=== PATIENT | female | born 1955 | race Caucasian/White ===

== ENCOUNTER → 2017-05-08 | Outpatient (CLI) | payer OTHER ==
[~2017-05-08] MED LIST: ACE3 FT; ALEN35TA30 PO; AMOX-559 PO; ARIP5TAB28 PO; ASPI-292 PO; BAC10 PO; BACLOFEN; CALC-649 PO; CELEXA; CETI-434 PO; CITALOPRAM HBR PO; CYCL10TA29 PO; GUALA600 PO; IBUP600T22 PO; LEV112 PO; LEV500 PO; LOR5/325 PO; MULTI VITAMIN; OMEGA 3; OXY5 PO; PILO5TAB12 PO; PROP10TA58 PO; TRAZ-133 PO; VALP250C32 PO; ZOL5 PO
--- NOTE | 2017-05-30 09:30 | RADIOLOGY IMAGING REPORT ---
[place] [facility] [place] NAME: QUINN PHILIP : [id number] MR: [id number] V: [id number] EXAM DATE: ORDERING PHYSICIAN: ROLANDO PHILLIPS TECHNOLOGIST: Blanche Marley PROCEDURE:BILATERAL DIGITAL SCREENING MAMMOGRAM WITH CAD AND 3D BREAST TOMOSYNTHESIS. COMPARISON:03/02/16 and priors back to 07/28/10. INDICATIONS:ROUTINE SCREENING FINDINGS: The breasts have scattered fibroglandular parenchymal densities. There are no mammographic findings concerning for malignancy. No significant interval change. DIAGNOSTIC CATEGORY 1--NEGATIVE. RECOMMENDATIONS: ROUTINE MAMMOGRAM AND CLINICAL EVALUATION. IMPRESSION: Bi-RADS 1: Negative. RECOMMENDATION: Followup screening mammogram in one year. Dictated by: Chico Huston on 05/28/2017 at 13:13 Transcribed by: GINI on 05/28/2017 at 21:57 Approved by: Stephanie Felix M.D. on 05/30/2017 at 8:49 [facility]
== END ==
LOC: MAMO 01:30
DX: Z12.31 Encounter for screening mammogram for malignant neoplasm of breast (principal)
CPT/HCPCS: 77063; 77067

== ENCOUNTER 2018-08-26 11:05 | Emergency (ER) | payer OTHER ==
--- NOTE | 2018-08-26 11:15 | ER Report ---
History and Physical Time Seen By MD: 11:15 HPI/ROS CHIEF COMPLAINT: Short of breath, congestion, nausea, vomiting and diarrhea HISTORY OF PRESENT ILLNESS: 63-year-old female patient presents to emergency room with complaint shortness of breath, congestion, nausea vomiting and diarrhea. Patient states this been going on for the past 2 weeks. She states that 2 weeks ago started having nausea, vomiting and diarrhea. States that persisted for a week. She states approximately one week ago she started having sinus congestion and shortness of breath. She states that has persisted since then. Patient states that she is having a productive cough. She states that she does not have much of an appetite. She states she has had a significant heada navdi. States that this is in the frontal as well as the back. She states that she's not had any visual changes. She denies any loss of consciousness or or injury to the head. Patient states she contacted somebody who recommended that she be evaluated immediately. REVIEW OF SYSTEMS: Respiratory: As noted above Cardiovascular: No chest pain, no palpitations. Gastrointestinal: As noted above Musculoskeletal: No back pain. Allergies: Coded Allergies: Cephalosporins (Unverified Allergy, Mild, 09/30/10) Sulfa (Sulfonamide Antibiotics) (Unverified Allergy, Mild, HIVES, SHORTNESS OF BREATH, 09/30/10) albuterol (Verified Allergy, Unknown, 08/26/18) wheezing Home Meds Active Scripts Amoxicillin/Pot Clav 875-125 Mg Tab (AUGMENTIN 875-125 TABLET) 1 Each Tablet, 1 TAB PO Q12H, #20 TAB Prov:CHAMP HARLEY SLIDE MACHINE TENDER 08/26/18 Reported Medications Multivitamin With Minerals (MULTIPLE VITAMIN) 1 Each Tablet, 1 EACH PO, TAB 08/26/18 Levothyroxine Sodium (LEVOTHYROXINE SODIUM) 0.112 Mg Tab, 0.112 MG PO QDAY, TAB 05/30/15 Propranolol Hcl (Inderal) 10 Mg Tablet, 10 MG PO QDAY, 0 Refills 09/30/10 Trazodone Hcl (Trazodone Hcl) 100 Mg Tablet, 100 MG PO QHS, 0 Refills 09/30/10 Cetirizine Hcl (Cetirizine Hcl) 10 Mg Tab.chew, 10 MG PO QDAY, 0 Refills 09/30/10 Oxybutynin Chloride (Ditropan) 5 Mg Tab, 5 MG PO 2 TABLETS TWO/DAY 09/30/10 Zolpidem Tartrate (Ambien) 5 Mg Tab, 10 MG PO QHS TAKES 10 MG AT HS 09/30/10 Discontinued Reported Medications Cyclobenzaprine Hcl (CYCLOBENZAPRINE HCL) 10 Mg Tablet, 10 MG PO TID, #9 TAB 05/30/15 Ibuprofen (IBUPROFEN) 600 Mg Tablet, 1 TAB PO Q6H 05/30/15 Acetaminophen/Codeine (TYLENOL #3 (OR EQUIV)) 1 Ea Tab, 1 EA FT PRN, TAB 05/30/15 Aspirin (Analgesic) 325 Mg Tablet, 325 MG PO WENT OFF OF THURS PREOP 09/30/10 Discontinued Scripts Hydrocodone Bit/Acetaminophen (HYDROCODON-ACETAMINOPHEN 5-325) 1 Each Tablet, 1 EACH PO Q4-6H, #14 TAB Prov:BOBBY ALMENDAREZ CHIEF TECHNICIAN X RAY 05/30/15 Amoxicillin/Pot Clav 875-125 Mg Tab (AUGMENTIN 875-125 TABLET) 1 Each Tablet, 1 TAB PO Q12H, #20 TAB Prov:BOBBY ALMENDAREZ CHIEF TECHNICIAN X RAY 05/30/15 Past Medical/Surgical History Patient has a past medical history of migraines, asthma, pneumonia, cholecystitis, osteopenia, arthritis, hypothyroidism, bipola, depression, PTSD. Patient has a surgical history of cholecystectomy, left knee surgery, tonsillectomy, sinus surgery, ganglion cyst removed. Reviewed Nurses Notes: Yes Hx Smoking: No Smoking Status: Never Smoker Exposure to Second Hand Smoke?: No Hx Substance Use Disorder: No Hx Alcohol Use: No Constitutional Vital Sign - Last 24 Hours 08/26/18 08/26/18 08/26/18 08/26/18 11:11 11:16 11:17 11:20 Temp 98.2 Pulse 79 72 Resp 20 38 B/P (MAP) 111/68 ???/??? (4265) 111/ (82) Pulse Ox 95 94 O2 Delivery Room Air 08/26/18 08/26/18 08/26/18 08/26/18 11:30 11:30 11:35 11:35 Pulse 62 65 64 Resp 14 14 19 Pulse Ox 94 98 O2 Delivery Room Air 08/26/18 08/26/18 08/26/18 08/26/18 11:50 12:05 12:18 12:20 Pulse 61 ??? 58 Resp 14 B/P (MAP) ???/??? (1665) Pulse Ox 98 08/26/18 08/26/18 08/26/18 08/26/18 12:30 12:35 12:50 12:54 Pulse 58 61 Resp 21 15 B/P (MAP) ???/??? (1665) 104/76 (85) Pulse Ox 98 99 08/26/18 08/26/18 08/26/18 08/26/18 13:00 13:05 13:20 13:30 Pulse 60 68 Resp 10 28 B/P (MAP) 98/72 (81) 94/67 (76) Pulse Ox 93 91 08/26/18 13:35 Pulse 53 Resp 30 Pulse Ox 93 Physical Exam General Appearance: The patient is alert, has no immediate need for airway protection and no current signs of toxicity. Respiratory: Chest is non tender, lungs are coarse with expiratory wheezes to auscultation. Cardiac: regular rate and rhythm Gastrointestinal: Abdomen is soft and non tender, no masses, bowel sounds normal. Musculoskeletal: Neck: Neck is supple and non tender. Extremities have full range of motion and are non tender. Skin: No rashes or lesions. DIFFERENTIAL DIAGNOSIS: After history and physical exam differential diagnosis was considered for sinusitis, gastroenteritis, viral syndrome, infectious diarr hea. Medical Decision Making Data Points Result Diagram: 08/26/18 1153 08/26/18 1153 Laboratory Hematology Test 08/26/18 11:53 08/26/18 13:17 Red Blood Count 4.84 M/uL (4.17-5.56) Mean Corpuscular Volume 89.9 fL (80.0-96.0) Mean Corpuscular Hemoglobin 30.5 pg (26.0-33.0) Mean Corpuscular Hemoglobin Concent 33.9 g/dL (32.0-36.0) Red Cell Distribution Width 13.1 % (11.5-14.5) Mean Platelet Volume 7.6 fL (7.2-11.1) Neutrophils (%) (Auto) 58.1 % (39.4-72.5) Lymphocytes (%) (Auto) 31.9 % (17.6-49.6) Monocytes (%) (Auto) 6.6 % (4.1-12.4) Eosinophils (%) (Auto) 2.7 % (0.4-6.7) Basophils (%) (Auto) 0.7 % (0.3-1.4) Nucleated RBC Relative Count (auto) 0.0 /100WBC Neutrophils # (Auto) 2.8 K/uL (2.0-7.4) Lymphocytes # (Auto) 1.5 K/uL (1.3-3.6) Monocytes # (Auto) 0.3 K/uL (0.3-1.0) Eosinophils # (Auto) 0.1 K/uL (0.0-0.5) Basophils # (Auto) 0.0 K/uL (0.0-0.1) Nucleated RBC Absolute Count (auto) 0.00 K/uL Sodium Level 140 mmol/L (137-145) Potassium Level 3.7 mmol/L (3.5-5.0) Chloride Level 107 mmol/L (98-107) Carbon Dioxide Level 26 mmol/L (22-31) Blood Urea Nitrogen 15 mg/dl (7-18) Creatinine 0.90 mg/dl (0.52-1.04) Glomerular Filtration Rate Calc > 60.0 Random Glucose 113 mg/dl (75-110) Calcium Level 8.3 mg/dl (8.4-10.2) Total Bilirubin 0.2 mg/dl (0.2-1.3) Aspartate Amino Transf (AST/SGOT) 27 U/L (0-35) Alanine Aminotransferase (ALT/SGPT) 31 U/L (0-56) Alkaline Phosphatase 86 U/L (0-126) Total Protein 6.7 g/dl (6.3-8.2) Albumin 3.9 g/dl (3.5-5.0) Amylase Level 53 U/L (0-110) Lipase 85 U/L (23-300) Helicobacter pylori IgG Antibody Negative (NEGATIVE) Urine Color Yellow Urine Clarity Slightly-cloudy Urine pH 5.0 pH (4.8-9.5) Urine Specific [place] 1.027 Urine Protein Negative mg/dL (NEGATIVE) Urine Glucose (UA) Negative mg/dL (NEGATIVE) Urine Ketones Negative mg/dL (NEGATIVE) Urine Blood Negative (NEGATIVE) Urine Nitrite Negative (NEGATIVE) Urine Bilirubin Small (NEGATIVE) Urine Urobilinogen Negative mg/dL (0.2-1.9) Urine Leukocyte Esterase Negative (NEGATIVE) Urine RBC None /HPF (0-2/HPF) Urine WBC 2 /HPF (0-5/HPF) Urine Squamous Epithelial Cells Many /LPF (</=FEW) Urine Transitional Epithelial Cells Few /LPF (NONE-FEW) Urine Calcium Oxalate Crystals Few /HPF (NONE) Urine Bacteria Negative /HPF (NONE-FEW) Urine Mucus Few /HPF (NONE-FEW) Chemistry Test 08/26/18 11:53 08/26/18 13:17 White Blood Count 4.8 k/uL (4.5-11.0) Red Blood Count 4.84 M/uL (4.17-5.56) Hemoglobin 14.7 g/dL (12.0-16.0) Hematocrit 43.5 % (34.0-47.0) Mean Corpuscular Volume 89.9 fL (80.0-96.0) Mean Corpuscular Hemoglobin 30.5 pg (26.0-33.0) Mean Corpuscular Hemoglobin Concent 33.9 g/dL (32.0-36.0) Red Cell Distribution Width 13.1 % (11.5-14.5) Platelet Count 235 K/uL (150-450) Mean Platelet Volume 7.6 fL (7.2-11.1) Neutrophils (%) (Auto) 58.1 % (39.4-72.5) Lymphocytes (%) (Auto) 31.9 % (17.6-49.6) Monocytes (%) (Auto) 6.6 % (4.1-12.4) Eosinophils (%) (Auto) 2.7 % (0.4-6.7) Basophils (%) (Auto) 0.7 % (0.3-1.4) Nucleated RBC Relative Count (auto) 0.0 /100WBC Neutrophils # (Auto) 2.8 K/uL (2.0-7.4) Lymphocytes # (Auto) 1.5 K/uL (1.3-3.6) Monocytes # (Auto) 0.3 K/uL (0.3-1.0) Eosinophils # (Auto) 0.1 K/uL (0.0-0.5) Basophils # (Auto) 0.0 K/uL (0.0-0.1) Nucleated RBC Absolute Count (auto) 0.00 K/uL Glomerular Filtration Rate Calc > 60.0 Calcium Level 8.3 mg/dl (8.4-10.2) Total Bilirubin 0.2 mg/dl (0.2-1.3) Aspartate Amino Transf (AST/SGOT) 27 U/L (0-35) Alanine Aminotransferase (ALT/SGPT) 31 U/L (0-56) Alkaline Phosphatase 86 U/L (0-126) Total Protein 6.7 g/dl (6.3-8.2) Albumin 3.9 g/dl (3.5-5.0) Amylase Level 53 U/L (0-110) Lipase 85 U/L (23-300) Helicobacter pylori IgG Antibody Negative (NEGATIVE) Urine Color Yellow Urine Clarity Slightly-cloudy Urine pH 5.0 pH (4.8-9.5) Urine Specific Clement[place] 1.027 Urine Protein Negative mg/dL (NEGATIVE) Urine Glucose (UA) Negative mg/dL (NEGATIVE) Urine Ketones Negative mg/dL (NEGATIVE) Urine Blood Negative (NEGATIVE) Urine Nitrite Negative (NEGATIVE) Urine Bilirubin Small (NEGATIVE) Urine Urobilinogen Negative mg/dL (0.2-1.9) Urine Leukocyte Esterase Negative (NEGATIVE) Urine RBC None /HPF (0-2/HPF) Urine WBC 2 /HPF (0-5/HPF) Urine Squamous Epithelial Cells Many /LPF (</=FEW) Urine Transitional Epithelial Cells Few /LPF (NONE-FEW) Urine Calcium Oxalate Crystals Few /HPF (NONE) Urine Bacteria Negative /HPF (NONE-FEW) Urine Mucus Few /HPF (NONE-FEW) Urinalysis Test 08/26/18 13:17 Urine Color Yellow Urine Clarity Slightly-cloudy Urine pH 5.0 pH (4.8-9.5) Urine Specific Clement[place] 1.027 Urine Protein Negative mg/dL (NEGATIVE) Urine Glucose (UA) Negative mg/dL (NEGATIVE) Urine Ketones Negative mg/dL (NEGATIVE) Urine Blood Negative (NEGATIVE) Urine Nitrite Negative (NEGATIVE) Urine Bilirubin Small (NEGATIVE) Urine Urobilinogen Negative mg/dL (0.2-1.9) Urine Leukocyte Esterase Negative (NEGATIVE) Urine RBC None /HPF (0-2/HPF) Urine WBC 2 /HPF (0-5/HPF) Urine Squamous Epithelial Cells Many /LPF (</=FEW) Urine Transitional Epithelial Cells Few /LPF (NONE-FEW) Urine Calcium Oxalate Crystals Few /HPF (NONE) Urine Bacteria Negative /HPF (NONE-FEW) Urine Mucus Few /HPF (NONE-FEW) EKG/Imaging Imaging EXAMINATION: KV and upright 08/26/2018 11:22 AM HISTORY: nausea, vomiting, diarrhea COMPARISON: None FINDINGS: Gas and a mild amount of fecal material in the colon and a small amount of small bowel gas. No distended loops or air-fluid levels. Soft tissue contours are unremarkable. Pelvic calcifications appear to be phleboliths. No definite calculus. Minimal levoscoliotic lumbar curvature. No acute bony finding. IMPRESSION: Nonobstructive bowel gas pattern. Report Dictated By: Chico Huston MD at 08/26/2018 12:53 PM Report E-Signed By: Chico Huston MD at 08/26/2018 12:54 PM EXAMINATION: PA and Lateral Chest 08/26/2018 11:22 AM HISTORY: cough, fever COMPARISON: Separate KUB and upright today. Chest x-ray 03/27/2007. FINDINGS: Cardiomediastinal contours: Normal Lungs and pleura: Normal Bones/soft tissues: Old right rib fractures. IMPRESSION: No acute cardiopulmonary abnormality. Report Dictated By: Chico Huston MD at 08/26/2018 12:54 PM Report E-Signed By: Chico Huston MD at 08/26/2018 12:[address] SINUS W/O CON COMPARISONS: None ADDITIONAL PERTINENT HISTORY: Sinus pressure and headache. TECHNIQUE: Multiple axial images were obtained through the paranasal sinuses with coronal and sagittal reformatted images. No IV contrast was administered. One of the following dose optimization techniques was utilized in the pe rformance of this exam: Automated exposure control; adjustment of the mA and/or kV according to the patient's size; or use of an iterative reconstruction technique. Specific details can be referenced in the facility's radiology CT exam operational policy. FINDINGS: Maxillary sinuses: Mild mucosal thickening involving both maxillary sinuses.. Frontal sinuses: Negative. Ethmoid air cells: Mild mucosal thickening involving the ethmoid air cells bilaterally. Sphenoid sinuses: Mild mucosal thickening involving both sphenoid sinuses.. Nasal septum: Mild nasal septal deviation to the right.. Drainage pathways: Patent Paranasal variance: None Medial orbital gutierrez, cribriform plate, and orbital floors: Negative. Visualized bony skull base Negative. Visualized intracranial contents: Negative. Orbits and surrounding soft tissues: Negative. IMPRESSION: 1. Mild nonobstructive paranasal sinus disease as discussed above. 2. Mild nasal septal deviation to the right. Report Dictated By: Bassam Chu MD at 08/26/2018 12:39 PM Report E-Signed By: Bassam Chu MD at 08/26/2018 12:43 PM ED Course/Re-evaluation ED Course Patient was admitted to exam room, history and physical were obtained. Differential diagnoses were considered. On examination lungs are clear, heart is regular, abdomen is soft nontender. An IV was started, a CBC, CMP, urinalysis, acute abdominal x-ray, two-view chest x-ray was done. The labs were unremarkable, the chest x-ray was unremarkable. CT scan of the sinuses was done which did show moderate inflammation of the maxillary sinuses. I discussed the findings with the patient. We will go ahead and treat her for an acute sinusitis. Will give her Augmentin one tab by mouth twice a day 10 days. Patient does have an allergy to cephalosporins, however she is not had a reaction to penicillins. Patient is follow-up with her primary care provider in the next week. She is return to emergency room if condition worsens. Because patient has been complaining of stomach upset we will go ahead and have her do a clear liquid diet for the next 24-48 hours. Patient verbalized understanding and agreement with plan. Decision to Disposition Date: Aug 26, 2018 Decision to Disposition Time: 13:40 Depart Departure Latest Vital Signs Vital Signs Date Time Temp Pulse Resp B/P (MAP) Pulse Ox O2 Delivery O2 Flow Rate FiO2 08/26/18 13:35 53 30 93 08/26/18 13:30 94/67 (76) 08/26/18 11:30 Room Air 08/26/18 11:11 98.2 Impression: Primary Impression: Sinusitis Condition: Improved Disposition: HOME OR SELF-CARE New Scripts Amoxicillin/Pot Clav 875-125 Mg Tab (AUGMENTIN 875-125 TABLET) 1 Each Tablet 1 TAB PO Q12H, #20 TAB Prov: CHAMP HARLEY BRIGID 08/26/18 Patient Instructions: Sinusitis (ED) Additional Instructions: Increase fluid intake. Clear liquid diet for the next 24-48 hours. After that you may advance diet as tolerated starting with complex carbohydrates; rice, bread or pasta. Follow up with your primary care provider in the next week. Return to the ER if condition worsens. You may use over the counter decongestant of choice. You may lead the class tomorrow if you are feeling up to it. Problem Qualifiers Primary Impression: Sinusitis Sinusitis location: maxillary Chronicity: acute Recurrence: non- recurrent Qualified Codes: J01.00 - Acute maxillary sinusitis, unspecified CHAMP HARLEY Aug 26, 2018 11:15
[2018-08-26] MEDS ORDERED: NS(*) 0.9% 1000 ML BAG 1,000 ML IV ONE (11:22)
[2018-08-26] MEDS ORDERED: ONDANSETRON 4 MG/2 ML VIAL IVP ONE (11:25)
[2018-08-26] MEDS ORDERED: IPRATROPIUM 0.5MG/2.5ML NEB NEB ONE (11:25)
[2018-08-26] MEDS ORDERED: MULT-1335 PO (11:49)
[2018-08-26 12:00] LABS: PLATELET COUNT, AUTOMATED 235 K/uL (150-450)
--- NOTE | 2018-08-26 12:48 | RADIOLOGY IMAGING REPORT ---
FACILITY: [facility] PATIENT NAME: Adela Tamayo : 1955 MR: [id number] V: [id number] EXAM DATE: ORDERING PHYSICIAN: CHAMP HARLEY TECHNOLOGIST: Location: [facility] Patient: Adela Tamayo : 1955 Visit/Account:[id number] Date of Sevice: 08/26/2018 CT SINUS W/O CON COMPARISONS: None ADDITIONAL PERTINENT HISTORY: Sinus pressure and headache. TECHNIQUE: Multiple axial images were obtained through the paranasal sinuses with coronal and sagitta l reformatted images. No IV contrast was administered. One of the following dose optimization techni ques was utilized in the performance of this exam: Automated exposure control; adjustment of the mA a nd/or kV according to the patient's size; or use of an iterative reconstruction technique. Specific details can be referenced in the facility's radiology CT exam operational policy. FINDINGS: Maxillary sinuses: Mild mucosal thickening involving both maxillary sinuses.. Frontal sinuses: Negative. Ethmoid air cells: Mild mucosal thickening involving the ethmoid air cells bilaterally. Sphenoid sinuses: Mild mucosal thickening involving both sphenoid sinuses.. Nasal septum: Mild nasal septal deviation to the right.. Drainage pathways: Patent Paranasal variance: None Medial orbital gutierrez, cribriform plate, and orbital floors: Negative. Visualized bony skull base Negative. Visualized intracranial contents: Negative. Orbits and surrounding soft tissues: Negative. IMPRESSION: 1. Mild nonobstructive paranasal sinus disease as discussed above. 2. Mild nasal septal deviation to the right. Report Dictated By: Bassam Chu MD at 08/26/2018 12:39 PM Report E-Signed By: Bassam Chu MD at 08/26/2018 12:43 PM WSN:[email or web address]
--- NOTE | 2018-08-26 12:59 | RADIOLOGY IMAGING REPORT ---
FACILITY: [facility] [place] PATIENT NAME: Adela Tamayo : 1955 MR: [id number] V: [id number] EXAM DATE: ORDERING PHYSICIAN: CHAMP HARLEY TECHNOLOGIST: Location: [facility] Patient: Adela Tamayo : 1955 Visit/Account:[id number] Date of Sevice: 08/26/2018 EXAMINATION: KV and upright 08/26/2018 11:22 AM HISTORY: nausea, vomiting, diarrhea COMPARISON: None FINDINGS: Gas and a mild amount of fecal material in the colon and a small amount of small bowel gas . No distended loops or air-fluid levels. Soft tissue contours are unremarkable. Pelvic calcificat ions appear to be phleboliths. No definite calculus. Minimal levoscoliotic lumbar curvature. No ac antony bony finding. IMPRESSION: Nonobstructive bowel gas pattern. Report Dictated By: Chico Huston MD at 08/26/2018 12:53 PM Report E-Signed By: Chico Huston MD at 08/26/2018 12:54 PM WSN:[email or web address]
--- NOTE | 2018-08-26 13:00 | RADIOLOGY IMAGING REPORT ---
FACILITY: [facility] PATIENT NAME: Adela Tamayo : 1955 MR: [id number] V: [id number] EXAM DATE: ORDERING PHYSICIAN: CHAMP HARLEY TECHNOLOGIST: [place] [facility] [place] Patient: Adela Tamayo : 1955 Visit/Account:[id number] Date of Sevice: 08/26/2018 EXAMINATION: PA and Lateral Chest 08/26/2018 11:22 AM HISTORY: cough, fever COMPARISON: Separate KUB and upright today. Chest x-ray 03/27/2007. FINDINGS: Cardiomediastinal contours: Normal Lungs and pleura: Normal Bones/soft tissues: Old right rib fractures. IMPRESSION: No acute cardiopulmonary abnormality. Report Dictated By: Chico Huston MD at 08/26/2018 12:54 PM Report E-Signed By: Chico Huston MD at 08/26/2018 12:56 PM WSN:[email or web address]
[2018-08-26 13:30] VITALS: BP 94/67
[2018-08-26] MEDS ORDERED: AMOX-559 PO (13:38)
== END 2018-08-26 13:53 | disposition home or self-care (01) ==
LOC: ER 11:42
DX: J01.00 Acute maxillary sinusitis, unspecified (principal)
CPT/HCPCS: 70486; 71046; 74019; 81001; 82150; 83690; 85025; 86677; 94640; 96361; 96374; 99284; J2405; J7030; J7644; 82040; 82247; 82310; 82374; 82435; 82565; 82947; 84075; 84132; 84155; 84295; 84450; 84460; 84520

== ENCOUNTER → 2018-08-30 | Outpatient (CLI) | payer OTHER ==
[~2018-08-30] MED LIST changes: +MULT-1335 PO
--- NOTE | 2018-08-30 15:14 | RADIOLOGY IMAGING REPORT ---
FACILITY: [facility] [place] PATIENT NAME: QUINN PHILIP : [id number] MR: [id number] V: [id number] EXAM DATE: ORDERING PHYSICIAN: ANDRIY GUTIERREZ TECHNOLOGIST: Blanche Marley PROCEDURE:BILATERAL DIGITAL SCREENING MAMMOGRAM WITH CAD ASSISTED INTERPRETATION & 3D TOMOSYNTHESIS COMPARISON:Prior mammograms dated 05/08/17, 03/02/16, 10/16/13, 09/09/12 INDICATIONS:screening FINDINGS: There are scattered areas of fibroglandular density throughout the breasts. The parenchymal pattern has remained stable when allowing for difference in mammographic technique & patient positioning. DIAGNOSTIC CATEGORY 1--NEGATIVE. RECOMMENDATIONS: ROUTINE MAMMOGRAM AND CLINICAL EVALUATION. IMPRESSION: BIRADS 1: Negative. No significant abnormality is seen. Dictated by: Stephanie Felix M.D. on 08/30/2018 at 14:54 Transcribed by: MARCIAL on 08/30/2018 at 14:57 Approved by: Stephanie Felix M.D. on 08/30/2018 at 15:13 [facility]
== END ==
LOC: MAMO 01:22
PROVIDERS: ATTEND Obstetrics & Gynecology
DX: Z12.31 Encounter for screening mammogram for malignant neoplasm of breast (principal)
CPT/HCPCS: 77063; 77067